=== PATIENT | female | born 2005 | race Caucasian/White ===

== ENCOUNTER 2024-08-25 00:42 | Emergency (ER) | payer SELFPAY ==
[2024-08-25] MEDS: methylPREDNISolone Sodium Succinate 40 MG/1 ML SDV IM ONE (00:54)
== END 2024-08-25 02:30 | disposition home or self-care (01) ==
LOC: MERGE 00:42 → MW.ED 00:42
DX: J45.901 Unspecified asthma with (acute) exacerbation (principal); Z79.899 Other long term (current) drug therapy
CPT/HCPCS: 71045; 96372; 99285; J2919; J7620; 99283; A9270-GY